=== PATIENT | female | born 1990 | race Caucasian/White ===

== ENCOUNTER 2020-05-23 16:45 | Emergency (ER) | payer BC, OTHER ==
[~2020-05-23 16:45] MED LIST: BENTYL 20MG TAB20 MG PO; ZOFRAN4 MG PO
[2020-05-23 18:00] LABS: HEMOGLOBIN 15.1 gm/dl (12.3-15.3); RED BLOOD COUNT 4.9 M/UL (4.00-5.10); WHITE BLOOD COUNT 4.8 K/UL (4.5-11.0)
[2020-05-23 18:23] LABS: BUN/CREATININE RATIO 24 (0-10)
== END 2020-05-23 22:31 | disposition home or self-care (01) ==
LOC: ER1 16:45
PROVIDERS: Family Medicine
DX: R07.89 Other chest pain (principal); E87.6 Hypokalemia
CPT/HCPCS: 71045; 80048; 82550; 82553; 83874; 84484; 85025; 85379; 93005; 99285; Q9967